=== PATIENT | male | born 2005 ===

== ENCOUNTER 2024-02-19 16:48 | Outpatient (CLI) | payer MEDICARE, OTHER, MEDICAID, SELFPAY ==
--- NOTE | 2024-02-19 11:40 | DI.RAD_ITS ---
Exam(s) XR CHEST 2V PA LATERAL EXAM: XR CHEST 2V PA LATERAL CLINICAL HISTORY: CHRONIC COUGH R05.3 TECHNIQUE: 2D digital imaging was performed of the chest. Two images were obtained. PA and lateral views were obtained. COMPARISON: No exams were available for comparison FINDINGS: MEDIASTINUM: Normal. HEART: Normal. PULMONARY VASCULATURE: Normal. LUNGS: Clear. PLEURAL SPACE: No pleural effusion or pneumothorax. BONE:Within normal limits for the patient's age. OTHER FINDINGS:Normal. IMPRESSION: No acute pulmonary findings. DATA REPOSITORY: RADIATION DOSE DELIVERED:
== END 2024-02-19 17:08 ==
PROVIDERS: Visit Provider Physician Assistant Medical
DX: R05.3 Chronic cough (principal)
CPT/HCPCS: 71046

== ENCOUNTER 2025-02-01 12:34 | Emergency (ER) | payer MEDICARE, OTHER, MEDICAID, SELFPAY ==
[2025-02-01] VITALS (17 sets, daily range): BP systolic 102–139; BP diastolic 62–85; PULSE 68–104; RESP 14–25; TEMP 36.8; O2SAT 97–100
[2025-02-01 13:19] LABS: BE (Venous) -1 mmol/L (-2-3); HCO3 (Venous) 25 mmol/L (23-28); O2 Sat (Venous) 78 %; TCO2 (Venous) 22 mmol/L (24-29); pCO2 (Venous) 43 mmHg (41-51); pO2 (Venous) 43 mmHg
[2025-02-01] MEDS: Normal Saline 1,000 ML 1000 ML IV (13:21)
[2025-02-01 13:22] LABS: Abs Immature Grans 0.06 10^3/uL (0.0-0.06); HCT 37.6 % (40.0-50.0); HGB 13.8 g/dL (13.5-17.5); Immature Grans % 1.0 %; MCH 30.3 pg (27.0-33.0); MCHC 36.7 % (32.0-36.0); MCV 83 fL (80-95); MPV 8.6 fL (8.0-11.0); Platelet Count 266 10^3/uL (130-400); RBC 4.55 10^6/uL (4.36-5.78); RDW 10.6 % (11.8-14.1); RDW-SD 31.8 fL; WBC 6.01 10^3/uL (4.4-10.8)
[2025-02-01 13:35] LABS: Glucose >=1000 mg/dL (Negative)
[2025-02-01 13:46] LABS: C & S Indicated? No; RBC Negative HPF (0-2); WBC Negative HPF (0-5)
[2025-02-01 13:54] LABS: ALT 39 U/L (16-63); AST 23 U/L (15-37); Albumin 3.8 g/dL (3.4-5.0); Alkaline Phosphatase 177 U/L (46-116); Anion Gap 13.1 mmol/L (3-11); BUN 14 mg/dL (7-18); Bilirubin, Total 0.3 mg/dL (0.2-1.0); CO2 25.9 mmol/L (21.0-32.0); Calcium 9.5 mg/dL (8.5-10.1); Chloride 90 mmol/L (98-107); Estimated GFR 129.93 (mL/min/1.73m2); Glucose 475 mg/dL (74-106); Potassium 4.4 mmol/L (3.5-5.1); Sodium 129 mmol/L (136-145); Total Protein 7.6 g/dL (6.4-8.2)
--- NOTE | 2025-02-01 14:38 | W.ED.GENAD ---
Discharge Plan Disposition Patient Disposition: Home Condition: Good Discharge Details Clinical Impression: Diabetes mellitus, new onset Primary Care Provider: Unknown,Unknown ED Provider: Kieran Simmons Home Meds and New Rx's Prescriptions: New (DME) diabetic supplies, miscellan. Misc See Rx Instructions .Route Qty: 25 0RF Rx Instructions: As directed Discharge Instructions Instructions: Diabetes and diet Additional Instructions: At this time your blood sugar has notably improved. Please follow-up closely with your road traffic controller tomorrow for further diabetes counseling and to start your diabetic medication management. Please begin working on establishment with a primary care provider in this area. Your road traffic controller will place a referral with [facility] for endocrinology. Please avoid excessive sugar, carbs, and stick with a diabetic diet. If you notice any worsening of your symptoms, or any new symptoms such as vomiting, diarrhea, fever, chills, shortness of breath, chest pain, numbness, weakness, or fainting , please return immediately to the emergency department for reevaluation. Please follow up with your primary care provider as soon as possible for reassessment and reevaluation. As always, it was a pleasure participating in your medical care today. HPI General Date/Time Provider Initiated Documentation: 02/01/25 13:03. HPI Narrative: 19-year-old male with a past medical history of schizophrenia, who is well-managed by psychiatry and his primary care provider/road traffic controller, presents today for evaluation of elevated blood sugar. Father and mother state that the patient has had patient is dry mouth and excessive drinking for the last 2 years while on antipsychotic medication. Evaluation and previous labs have been stable/normal. In October/November the patient had normal vision at an optometry evaluation. However he recently had his vision checked just a day or 2 ago and he had cataracts noted. Referral was placed to [facility] ophthalmology. Mother was researching potential causes of the cataracts and was concern for potential diabetes. They got a glucose monitor, and checked his blood sugar and noted it to be very high over 500. He came to the ER for further assessment. Aside for the aforementioned symptoms he denies any other complaints. No vomiting no chest pain no shortness of breath. He does pee frequently. He denies any family history of early onset diabetes/type 1 diabetes. No other complaints at this time. Related Data Home Medications ?Medication ?Instructions ?Recorded ?Confirmed diabetic supplies, miscellan. #25 ea 02/01/25 Previous Rx's ?Medication ?Instructions ?Recorded diabetic supplies, miscellan. #25 ea 02/01/25 Allergies Allergy/AdvReac Type Severity Reaction Status Date / Time No Known Allergies Allergy Unverified 02/01/25 12:44 General Stated Complaint: Diabetes KAROLINE: 3 Exam Narrative Exam Narrative: 1.Const: Well-nourished, Well-developed, appearing stated age 2.Eyes: PERRL, no conjunctival injection, and symmetrical lids. 3.ENT: Atraumatic external nose and ears. Dry MM. Neck: Symmetric, trachea midline, No thyromegaly. 4.CVS: +S1/S2, Peripheral pulses 2+ and equal in all extremities. Brisk capillary refill in all extremities. 5.RESP: Unlabored respiratory effort. Clear to auscultation bilaterally. No wheezes rales or rhonchi 6.GI: Soft, Nontender/Nondistended, No hepatosplenomegaly. No guarding or rebound. 7.MSK: Normocephalic/Atraumatic, Extremities w/o deformity or ttp No cyanosis or clubbing, Normal movement of all extremities 8.Skin: Warm, Dry. No rashes or lesions. 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 Sensation grossly intact, no focal neurologic deficits. 10.Psych: (AAO) x3. Appropriate mood and affect Course Vital Signs Vital signs: Vital Signs Temperature 36.8 C 02/01/25 12:40 Pulse 92 H 02/01/25 12:40 Respiratory Rate 16 02/01/25 12:40 Blood Pressure 113/77 02/01/25 12:40 Pulse Oximetry 97 02/01/25 12:40 Temperature 36.8 C 02/01/25 13:16 Temperature Source Oral 02/01/25 13:16 Pulse 92 H 02/01/25 13:16 Respiratory Rate 16 02/01/25 13:16 Blood Pressure 113/77 02/01/25 13:16 Pulse Oximetry 97 02/01/25 13:16 Pain Level 0 02/01/25 13:16 Lab/Test Results Lab/Test Results: Laboratory Tests Range/Units 02/01/25 02/01/25 13:13 13:24 WBC (4.4-10.8) 10^3/uL 6.01 RBC (4.36-5.78) 10^6/uL 4.55 Hgb (13.5-17.5) g/dL 13.8 Hct (40.0-50.0) % 37.6 L MCV (80-95) fL 83 MCH (27.0-33.0) pg 30.3 MCHC (32.0-36.0) % 36.7 H RDW (11.8-14.1) % 10.6 L Plt Count (130-400) 10^3/uL 266 MPV (8.0-11.0) fL 8.6 Immature Gran % % 1.0 Neutrophils % % 63.4 Lymphocytes % % 28.1 Monocytes % % 5.5 Eosinophils % % 1.7 Basophils % % 0.3 Nucleated RBC % (0.0-0.3) % 0.0 Absolute Neutrophils (1.2-6.7) 10^3/uL 3.81 Absolute Lymphocytes (1.2-3.4) 10^3/uL 1.69 Absolute Monocytes (0.1-0.8) 10^3/uL 0.33 Absolute Eosinophils (0.0-0.7) 10^3/uL 0.10 Absolute Basophils (0.0-0.2) 10^3/uL 0.02 VBG pH (7.31-7.41) 7.37 VBG pCO2 (41-51) mmHg 43 VBG pO2 mmHg 43 VBG HCO3 (23-28) mmol/L 25 VBG Total CO2 (24-29) mmol/L 22 L VBG O2 Saturation % 78 VBG Base Excess (-2-3) mmol/L -1 VBG Lactate (<or=2.0) mmol/L 1.3 Sodium (136-145) mmol/L 129 L Potassium (3.5-5.1) mmol/L 4.4 Chloride (98-107) mmol/L 90 L Carbon Dioxide (21.0-32.0) mmol/L 25.9 Anion Gap (3-11) mmol/L 13.1 H BUN (7-18) mg/dL 14 Creatinine (0.70-1.30) mg/dL 0.8 Est GFR (CKD-EPI 2020) (mL/min/1.73m2) 129.93 Glucose (74-106) mg/dL 475 H Hemoglobin A1c (<5.7) % Calcium (8.5-10.1) mg/dL 9.5 Total Bilirubin (0.2-1.0) mg/dL 0.3 AST (15-37) U/L 23 ALT (16-63) U/L 39 Alkaline Phosphatase (46-116) U/L 177 H Total Protein (6.4-8.2) g/dL 7.6 Albumin (3.4-5.0) g/dL 3.8 Urine Color (Yellow) Yellow Urine Clarity (Clear) Clear Urine pH (5-8) 5.5 Ur Specific [place] (1.005-1.025) <= 1.005 Urine Protein (Neg-Trace) mg/dL Negative Urine Ketones (Negative) mg/dL 40 H Urine Blood (Negative) Negative Urine Nitrite (Negative) Negative Urine Bilirubin (Negative) Negative Urine Urobilinogen (Up to 0.2) mg/dL 0.2 Ur Leukocyte Esterase (Negative) Negative Urine RBC (0-2) HPF Negative Urine WBC (0-5) HPF Negative Ur Epithelial Cells (Negative) HPF Negative Urine Crystals (Negative) HPF Negative Urine Bacteria (Negative) HPF Negative Urine Casts (Negative) LPF Negative Urine Mucus (Negative) Negative Ur Culture Indicated? No Urine Glucose (Negative) mg/dL >=1000 H Medical Decision Making 19-year-old male with a past medical history of schizophrenia, who is well-managed by psychiatry and his primary care provider/road traffic controller, presents today for evaluation of elevated blood sugar. Father and mother state that the patient has had patient is dry mouth and excessive drinking for the last 2 years while on antipsychotic medication. Evaluation and previous labs have been stable/normal. In October/November the patient had normal vision at an optometry evaluation. However he recently had his vision checked just a day or 2 ago and he had cataracts noted. Referral was placed to [facility] ophthalmology. Mother was researching potential causes of the cataracts and was concern for potential diabetes. They got a glucose monitor, and checked his blood sugar and noted it to be very high over 500. He came to the ER for further assessment. Aside for the aforementioned symptoms he denies any other complaints. No vomiting no chest pain no shortness of breath. He does pee frequently. He denies any family history of early onset diabetes/type 1 diabetes. No other complaints at this time. Exam demonstrates a well-appearing male, dry mucous membranes but no other abnormality. No ketone smelling breath. Accu-Chek and blood sugar demonstrates a blood sugar of 475. Mildly low chloride and sodium at 90 and 129 respectively. Minimal anion gap at 13. Alk phos slightly elevated, but otherwise no other significant abnormalities. Urinalysis only shows 40 ketones, but no other abnormality. VBG shows no evidence of acidosis, bicarb normal, with no evidence to suggest diabetic ketoacidosis. Patient was given 15 units of subcu insulin, which is slightly underdosing for his current blood sugar. Desire is to not overshoot and cause hypoglycemia. Hemoglobin A1c was not able to be read at an [facility] secondary to its level being too high, our upper limit of testing is greater than 12.5. We will send [facility] for further differentiation. After the insulin was given, the patient's blood sugar eventually came down to the 150s after fluids and insulin. He tolerated this well. Shows no evidence of diaphoresis hypoglycemia or other abnormality. In fact he feels quite well. I did contact the patient's road traffic controller Dr. Chin, and he agrees to follow-up closely with them tomorrow morning. He will place endocrinology referral, continue outpatient medical management. I have placed a prescription for miscellaneous diabetic supplies for home, and the patient's PCP will start his diabetic insulin medication therapy. Patient otherwise stable for discharge. Discussed red flags which to return. Suspect type 1 diabetes mellitus secondary to genetics, viral etiology, or medication. I have extensively reviewed the treatment plan and discharge instructions with the patient and their family. I have addressed all patient concerns at this time. The patient and family was made aware of what symptoms to monitor for that would warrant a return to the emergency department. Discussed the plan with the patient and family, they demonstrate verbal understanding and agreement with our assessment and plan at this time. The documentation in this chart was dictated using [employer] dictation software. Please excuse any dictation errors. PFSH All Active Problems (Updated 02/01/25 @ 16:47 by Kieran Simmons DO) Diabetes mellitus, new onset (Acute) Social History Smoking/Tobacco Use Status: Never Smoking risk assessment performed?: Yes Alcohol Intake: never Drug use: Never Housing: house Do you feel safe at home: Yes Do you feel safe in your relationship?: Yes
[2025-02-01] MEDS: Insulin REGULAR-Human 100 UNITS/ML UNIT 15 UNITS SC (14:43)
[2025-02-01 16:14] LABS: Anion Gap 12.5 mmol/L (3-11); BUN 10 mg/dL (7-18); CO2 25.5 mmol/L (21.0-32.0); Calcium 9.2 mg/dL (8.5-10.1); Chloride 99 mmol/L (98-107); Estimated GFR 141.73 (mL/min/1.73m2); Glucose 155 mg/dL (74-106); Potassium 3.4 mmol/L (3.5-5.1); Sodium 137 mmol/L (136-145)
[2025-02-02 08:36] LABS: Hemoglobin A1C >16.5 % (<5.7)
--- NOTE | 2025-02-02 11:50 | NUR.NOTE ---
MD note and labs faxed to PCP [facility]. Nursing Note:
== END 2025-02-01 17:20 | disposition home or self-care (01) ==
PROVIDERS: Emergency Provider Student in an Organized Health Care Education/Training Program
DX: E11.9 Type 2 diabetes mellitus without complications (principal); R51.9 Headache, unspecified
CPT/HCPCS: 99284 ×2; 36416; 82962; 96372; 80048; 80053; 82805; 96361; 81003; 81015; 83036; 83605; 85025; J1815